=== PATIENT | male | born 1940 | race Caucasian/White ===

== ENCOUNTER 2018-11-14 10:36 | Emergency (ER) | payer BC, MEDICARE ==
--- NOTE | 2018-11-14 11:57 | UC ---
Skin Complaint HPI - HPI Summary HPI Summary: 78-year-old male who removed a tick from his right upper abdominal wall one week ago. He has a scab present there. He was concerned perhaps the tick was left there however he states to me that when he removed the tick he was able to visualize it and thought he had gotten the whole thing. He states today he has a few "joint aches" which he doesn't normally have buddies had no fever or chills or other rashes. - History of Current Complaint Chief Complaint: UCSkin Time Seen by Provider: 11/14/18 11:56 Stated Complaint: TICK BITE Hx Obtained From: Patient Onset/Duration: Gradual Onset Skin Exposure Onset/Duration: Days Ago Timing: Constant Onset Severity: Mild Current Severity: Mild Pain Intensity: 1 Location: Other - Tick bite right upper Character: Redness - One small scabbed areas present. Aggravating Factor(s): Nothing Alleviating Factor(s): Nothing Associated Signs & Symptoms: Positive: Negative Related History: Insect Bite/Sting - Allergy/Home Medications Allergies/Adverse Reactions: Allergies Allergy/AdvReac Type Severity Reaction Status Date / Time gluten Allergy abd Verified 11/14/18 11:00 distress Home Medications: Home Medications NK [No Home Medications Reported] 11/14/18 [History Confirmed 11/14/18] PMH/Surg Hx/FS Hx/Imm Hx Previously Healthy: Yes - Surgical History Surgical History: None - Family History Known Family History: Positive: Non-Contributory - Social History Occupation: Retired Alcohol Use: Weekly Substance Use Type: None Smoking Status (MU): Never Smoked Tobacco Review of Systems All Other Systems Reviewed And Are Negative: Yes Skin: Positive: Other - One small scabbed area to the right upper lateral abdomen from where he removed the tick. Musculoskeletal: Positive: Other: - Patient states that he has a few "joint aches" that he normally doesn't have but he denies any fever or chills or rashes. Is Patient Immunocompromised?: No Physical Exam Triage Information Reviewed: Yes Appearance: Well-Appearing, No Pain Distress, Well-Nourished Vital Signs: Initial Vital Signs Temp 98.4 F 11/14/18 10:56 Pulse 74 11/14/18 10:56 Resp 16 11/14/18 10:56 BP 199/104 11/14/18 10:56 Pulse Ox 100 11/14/18 10:56 Vital Signs Reviewed: Yes Skin: Positive: Other - The area where the patient remove the tick has a scabbed area present and it has approximate 2 mm of erythema however there is no other rashes. I don't believe there is any particular since patient thinks he saw the whole thing. Course/Dx - Course Course Of Treatment: At this point because he says he has some new joint aches I am going to draw Lyme titers but not treat at this point in time until those titers are back. - Diagnoses Provider Diagnosis: Tick bite of abdomen Discharge - Sign-Out/Discharge Documenting (check all that apply): Patient Departure All imaging exams completed and their final reports reviewed: No Studies - Discharge Plan Condition: Fair Disposition: HOME Patient Education Materials: Tick Bite (ED) Referrals: Nancy Friend NP [Primary Care Provider] - Additional Instructions: We will call you with the results of your Lyme titers. Follow-up with your primary care provider if no improvement in 3 or 4 days or if worsening symptoms. - Billing Disposition and Condition Condition: FAIR Disposition: Home
== END 2018-11-14 12:24 | disposition home or self-care (01) ==
LOC: UCEAST 10:36
DX: T63.481A Toxic effect of venom of other arthropod, accidental (unintentional), initial encounter (principal); Y92.9 Unspecified place or not applicable
CPT/HCPCS: 36415; 86618; 99201; G0463

== ENCOUNTER 2019-01-13 14:54 | Emergency (ER) | payer BC ==
--- NOTE | 2019-01-13 14:58 | UC ---
Abdominal Pain Male HPI - HPI Summary HPI Summary: 78 yo male presents with LLQ abdominal pain. He tells me that around 0200 this morning he developed sharp LLQ pain and felt he had to use the bathroom urgently - had a normal BM, but no change in discomfort. Pain has persisted since that time. Worse with movement and touching the area. He has never had a colonoscopy. No hx of diverticulitis. Denies SOB, chest pain, back/flank pain, n /v, dysuria. - History of Current Complaint Stated Complaint: ABDOMINAL PAIN Time Seen by Provider: 01/13/19 14:57 Hx Obtained From: Patient Onset/Duration: Sudden Onset Severity Initially: Moderate Severity Currently: Moderate Pain Intensity: 7 Pain Scale Used: 0-10 Numeric - Allergies/Home Medications Allergies/Adverse Reactions: Allergies Allergy/AdvReac Type Severity Reaction Status Date / Time gluten Allergy abd Verified 01/13/19 15:12 distress PMH/Surg Hx/FS Hx/Imm Hx - Additional Past Medical History Additional PMH: None - Surgical History Surgical History: None - Family History Known Family History: Positive: Non-Contributory - Social History Lives: With Family Alcohol Use: Weekly Substance Use Type: None Smoking Status (MU): Never Smoked Tobacco Review of Systems All Other Systems Reviewed And Are Negative: Yes Constitutional: Positive: Negative Skin: Positive: Negative Eyes: Positive: Negative ENT: Positive: Negative Respiratory: Positive: Negative Cardiovascular: Positive: Negative Gastrointestinal: Positive: Abdominal Pain Genitourinary: Positive: Negative Neurological: Positive: Negative Psychological: Positive: Negative Physical Exam - Summary Physical Exam Summary: GENERAL: NAD. WDWN. No pain distress. SKIN: No rashes, sores, lesions, or open wounds. NECK: Supple. Nontender. No lymphadenopathy. CHEST: CTAB. No r/r/w. No accessory muscle use. Breathing comfortably and in no distress. CV: RRR. Without m/r/g. Pulses intact. Cap refill <2seconds ABDOMEN: LLQ moderate TTP. Soft. No organomegaly. No CVA tenderness. Bowel sounds present NEURO: Alert. PSYCH: Age appropriate behavior. Triage Information Reviewed: Yes Vital Signs: Vital Signs: Temp Pulse Resp BP Pulse Ox 98.7 F 79 16 200/110 96 01/13/19 15:05 01/13/19 15:05 01/13/19 15:05 01/13/19 15:05 01/13/19 15:05 Vital Signs Reviewed: Yes Abd Pain Male Course/Dx - Course Course Of Treatment: LLQ pain with uncertain etiology. Suspect diverticulitis, but he has never had a colonoscopy and has no hx. Given this and his elevated BP today, I recommended that he go to the ER for further evaluation. He was agreeable to this. - Differential Dx/Clinical Impression Provider Diagnosis: LLQ pain, Elevated blood pressure reading Discharge - Sign-Out/Discharge Documenting (check all that apply): Patient Departure All imaging exams completed and their final reports reviewed: No Studies - Discharge Plan Condition: Stable Disposition: HOME-RECOMMEND TO ED Referrals: Nancy Friend NP [Primary Care Provider] - Additional Instructions: Please go to the ER for further evaluation of your left lower abdominal pain. - Billing Disposition and Condition Condition: STABLE Disposition: Home-Recommend to ED
[2019-01-13 15:16] VITALS: BP 200/110
== END 2019-01-13 15:39 | disposition home health service (06) ==
LOC: UCEAST 14:54
DX: R10.32 Left lower quadrant pain (principal); R03.0 Elevated blood-pressure reading, without diagnosis of hypertension
CPT/HCPCS: 99212; G0463

== ENCOUNTER 2019-01-13 16:16 | Emergency (ER) | payer BC ==
--- NOTE | 2019-01-13 16:36 | ED ---
Abdominal Pain/Male - HPI Summary HPI Summary: Pt is a 78 y/o M presenting to the ED with a chief complaint of abd pain located in the LLQ just below the belly button since midnight this date. The severity waxes and wanes, he describes it as cramping, and is similar to an episode he had in the past but it was not as severe last time. He denies fever, N/V/D, constipation, blood in stool, back pain, or testicular pain. - History of Current Complaint Chief Complaint: EDAbdPain Stated Complaint: LEFT LOWER ABD PAIN, SENT FROM [facility] PER PT Time Seen by Provider: 01/13/19 16:24 Hx Obtained From: Patient Onset/Duration: Gradual Onset, Lasting Hours, Still Present Timing: Intermittent, Lasting Hours Severity Initially: Moderate Severity Currently: Moderate Pain Intensity: 4 Pain Scale Used: 0-10 Numeric Location: Discrete At: LLQ Radiates: No Character: Cramping Aggravating Factor(s): Nothing Alleviating Factor(s): Nothing Associated Signs And Symptoms: Negative: Fever, Back Pain, Constipation, Blood in Stool, Nausea, Vomiting, Diarrhea - Allergies/Home Medications Allergies/Adverse Reactions: Allergies Allergy/AdvReac Type Severity Reaction Status Date / Time gluten Allergy abd Verified 01/13/19 15:12 distress PMH/Surg Hx/FS Hx/Imm Hx Previously Healthy: Yes Endocrine/Hematology History: Denies: Hx Diabetes Sensory History: Reports: Hx Contacts or Glasses Opthamlomology History: Reports: Hx Contacts or Glasses Infectious Disease History: No Infectious Disease History: Denies: Traveled Outside the [place] in Last 30 Days - Family History Known Family History: Negative: Diabetes - Social History Alcohol Use: Weekly Hx Substance Use: No Substance Use Type: Reports: None Hx Tobacco Use: No Smoking Status (MU): Never Smoked Tobacco Review of Systems Negative: Fever Positive: Abdominal Pain. Negative: Vomiting, Diarrhea, Nausea, Other - blood in stool, constipation Negative: other - testicular pain Negative: Myalgia - back pain All Other Systems Reviewed And Are Negative: Yes Physical Exam - Summary Physical Exam Summary: Constitutional: Well-developed, Well-nourished, Alert. (-) Distressed Skin: Warm, Dry HENT: Normocephalic; Atraumatic Eyes: Conjunctiva normal Neck: Musculoskeletal ROM normal neck. (-) JVD, (-) Stridor, (-) Tracheal deviation Cardio: Rhythm regular, rate normal, Heart sounds normal; Intact distal pulses; The pedal pulses are 2+ and symmetric. Radial pulses are 2+ and symmetric. (-) Murmur Pulmonary/Chest wall: Effort normal. (-) Respiratory distress, (-) Wheezes, (-) Rales Abd: Soft, point tenderness in the LLQ, (-) Distension, (-) Guarding, (-) Rebound Musculoskeletal: (-) Edema Lymph: (-) Cervical adenopathy Neuro: Alert, Oriented x3 Psych: Mood and affect Normal Triage Information Reviewed: Yes Vital Signs On Initial Exam: Initial Vitals Temp Pulse Resp BP Pulse Ox 99 F 77 18 227/111 97 01/13/19 16:18 01/13/19 16:18 01/13/19 16:18 01/13/19 16:18 01/13/19 16:18 Vital Signs Reviewed: Yes Diagnostics - Vital Signs Vital Signs Temp Pulse Resp BP Pulse Ox 01/13/19 16:18 99 F 77 18 227/111 97 - Laboratory Result Diagrams: 01/13/19 16:41 01/13/19 16:41 Lab Statement: Any lab studies that have been ordered have been reviewed, and results considered in the medical decision making process. - CT CT a/p CT Interpretation Completed By: Radiologist Summary of CT Findings: There is colonic diverticulosis with abnormal wall thickening and fat stranding of the distal descending colon consistent with acute diverticulitis without visible abscess or signs of gross perforation. ED physician has reviewed this report. Re-Evaluation - Re-Evaluation 1st re-eval Re-Evaluation Time: 19:50 Change: Improved Comment: Pt states he is feeling unwell. I informed him of his dx of diverticulitis, and offered him admission to [facility], which he declined. Abdominal Pain Male Course/Dx - Course Course Of Treatment: Patient is here with uncomplicated diverticulitis. Patient had a CT scan which showed diverticulitis with no perforation or abscess. Patient has a mild leukocytosis of 12. Patient is offered inpatient admission but declined. Patient was given a dose of Augmentin here and discharged on 14 days of Augmentin. - Diagnoses Provider Diagnoses: Diverticulitis Discharge - Sign-Out/Discharge Documenting (check all that apply): Patient Departure Patient Received Moderate/Deep Sedation with Procedure: No - Discharge Plan Condition: Stable Disposition: HOME Prescriptions: Amoxicillin/Clavulanate TAB* [Augmentin TAB 875*] 875 mg PO BID 14 Days #28 tab Patient Education Materials: Diverticulitis (ED) Referrals: Nancy Friend NP [Primary Care Provider] - Additional Instructions: Please take your prescribed antibiotics as instructed. Return to the emergency department with any worsening abd pain, fever, blood in your stool, vomiting, or other concerning symptoms. Follow up with your primary care provider within the next 2-3 days. - Billing Disposition and Condition Condition: STABLE Disposition: Home - Attestation Statements Document Initiated by Chris: Yes Documenting Scribe: Chiquita Ruby Provider For Whom Chris is Documenting (Include Credential): Josesito Gaytan MD. Scribe Attestation: Chiquita Tsai, scribed for Josesito Gaytan MD. on 01/13/19 at 2142. Scribe Documentation Reviewed: Yes Provider Attestation: The documentation as recorded by the Chiquita alexis accurately reflects the service I personally performed and the decisions made by Josesito cleary MD. Status of Scribe Document: Viewed
[2019-01-13 16:56] LABS: ABS Basophils 0.1 10^3/ul (0-0.2); ABS Eosinophils 0.6 10^3/ul (0-0.6); ABS Lymphocytes 3.7 10^3/ul (1.0-4.8); ABS Monocytes 1.3 10^3/ul (0-0.8); ABS Neutrophils 6.3 10^3/ul (1.5-7.7); Hematocrit 44 % (42-52); Lymphocyte % 31.1 %; Mean Corpuscular HGB Conc 34 g/dL (31-36); Mean Corpuscular Hemoglobin 32 pg (27-31); Mean Corpuscular Volume 92 fL (80-94); Mean Platelet Volume 7.5 fL (7.4-10.4); Nucleated Red Blood Cells % 0.1; Platelet Count 263 10^3/uL (150-450); Red Blood Count 4.75 10^6 /uL (4.18-5.48); Red Cell Distribution Width 13 % (10-15)
[2019-01-13 17:14] LABS: Albumin/Globulin Ratio 1.4 (1-3); BUN/Creatinine Ratio 21.8 (8-20); Calcium 9.3 mg/dL (8.6-10.3); EGFR African American 86.9 (>60); EGFR Non-African American 71.8 (>60); Globulin 2.8 g/dL (2-4); Potassium 4.2 mmol/L (3.5-5.0); Total Bilirubin 0.8 mg/dL (0.2-1.0); Total Protein 6.8 g/dL (6.4-8.9)
[2019-01-13 17:42] LABS: Urine Appearance Clear; Urine Bacteria Absent (Absent); Urine Bilirubin Negative (Negative); Urine Blood 1+ (Negative); Urine Color Yellow; Urine Glucose Negative (Negative); Urine Ketones Negative (Negative); Urine Nitrite Negative (Negative); Urine Protein Negative (Negative); Urine Red Blood Cell Trace(0-2/hpf) (Absent); Urine Specific Gravity 1.009 (1.010-1.030); Urine Urobilinogen Negative (Negative); Urine White Blood Cell Trace(0-5/hpf) (Absent)
[2019-01-13] MEDS ORDERED: Iohexol 300* (CONTRAST) 10 ML SDV IV ONE (18:50)
[2019-01-13] MEDS ORDERED: Amoxicillin/Clavulanate TAB* 875 MG PO ONE (19:58)
[2019-01-13 20:10] VITALS: BP 211/101
== END 2019-01-13 20:08 | disposition home or self-care (01) ==
LOC: ED 16:16
DX: K57.92 Diverticulitis of intestine, part unspecified, without perforation or abscess without bleeding (principal)
CPT/HCPCS: 36415; 74177; 80053; 81003; 81015; 85025; 87086; 99283; A9270-GY; Q9967